=== PATIENT | female | born 1990 | race African-American/Black ===

== ENCOUNTER 2019-12-26 14:05 | Emergency (ER) | payer MEDICAID ==
[~2019-12-26] VITALS: Ht 170.2 cm; Wt 98.2 kg
[~2019-12-26 14:05] MED LIST: FERR325T16 PO; IBUP-1223 PO; MAGN70TA2 PO; OXYC-302 PO; POTA20TA6 PO
--- NOTE | 2019-12-26 14:57 | NUR ---
Break RN: Ultrasound in room at this time. Patient denies needs. Monitoring in place.
[2019-12-26 15:01] VITALS: BP 123/65
== END 2019-12-26 15:45 | disposition home or self-care (01) ==
LOC: ED 14:53
DX: T81.89XA Other complications of procedures, not elsewhere classified, initial encounter (principal)
CPT/HCPCS: 76705; 99284